=== PATIENT | female | born 1935 | race Caucasian/White ===

== ENCOUNTER → 2016-09-08 | Outpatient (CLI) | payer MEDICARE, BC ==
[~2016-09-08] MED LIST: ALAGESIC CAPSUL1 CAP PO; AMITRYPTYLINE PO; ASPIRIN81 M2 PO; BUTALB-CAFF-AC1 EACH PO; CELEXA PO; INDERAL60 MG PO; NAPROXEN PO; OMEPRAZOLE40 M1 PO; PHENERGAN25 M1 PO; PROMETHAZINE HC25 MG PO; PROTONIX PO; SENSIPAR30 MG PO; TESSALON PERLE100 M1 PO; TOPIRAMATE25 MG PO; TRAZODONE HCL100 MG PO; TYLENOL W-CODEI1 TAB PO; VITAMIN D50000 UNIT PO
--- NOTE | ~2016-09-08 | MR18 ---
[facility] A Service of [facility] RADIOLOGY TEXT RESULTS PATIENT: ELLIOT MISHRA LOCATION: [facility] : 36 UNIT #: [id number] AGE: [address]: Rhett Ko MD SEX: F ORDER DR: [id number] [facility] [address] [place], [place] [address] [id number] O MR#: [id number] Acc #: [id number] NAME: ELLIOT MISHRA : 1935 SEX: F STUDY DATE/TIME: 09/08/2016 14:03 UNIT: [facility] ROOM: STUDY DESCRIPTION: MR Brain Wo Contrast Attending Physician: Rhett Ko M.D. Ordering Physician: Rhett Ko M.D. Primary Care Physician: Rhett Ko M.D. MRI CENTER REPORT This report is preliminary unless electronic signature is present. INDICATION Migraine headache. Family history of aneurysm. Recent fall. TECHNIQUE Multiplanar MRI of the brain without contrast. COMPARISON Concurrent MRA of the head dated 09/08/2016 and MRI of the brain dated 06/30/2009. FINDINGS The midline structures and craniocervical junction are within normal limits. Confluent T2/FLAIR signal abnormalities within the periventricular and subcortical white matter are consistent with chronic small vessel changes. 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 This is unchanged from 2008. The ventricles and basilar cisterns are normal in size and configuration. No extraaxial collections. Vascular flow voids are grossly normal, however will be further assessed on the MRI of the brain. The visualized paranasal sinuses are clear. Orbits are unremarkable. No mastoid effusion. IMPRESSION 1. No acute intracranial findings. 2. Atrophy and chronic small vessel changes. The small vessel changes have progressed since the older 2008 comparison. Dictated by... Ashok Randolph M.D. THIS IS AN ELECTRONICALLY VERIFIED REPORT Ashok Randolph M.D. at 09/09/2016 10:58 AM [facility] A Service of [facility] RADIOLOGY TEXT RESULTS PATIENT: ELLIOT MISHRA LOCATION: [facility] : 36 UNIT #: [id number] AGE: [address]: Rhett Ko MD SEX: F ORDER DR: RADHA/david TD: 09/09/2016 10:38 JOB #: [id number] MRI CENTER REPORT COPY
--- NOTE | ~2016-09-08 | MR122 ---
[facility] A Service of [facility] RADIOLOGY TEXT RESULTS PATIENT: ELLIOT MISHRA LOCATION: [facility] : 36 UNIT #: [id number] AGE: [address]: Rhett Ko MD SEX: F ORDER DR: [id number] [facility] [address] [place], [place] [address] [id number] O MR#: [id number] Acc #: [id number] NAME: ELLIOT MISHRA : 1935 SEX: F STUDY DATE/TIME: 09/08/2016 14:32 UNIT: [facility] ROOM: STUDY DESCRIPTION: MR MRA Head Wo Contrast Attending Physician: Rhett Ko M.D. Ordering Physician: Rhett Ko M.D. Primary Care Physician: Rhett Ko M.D. MRI CENTER REPORT This report is preliminary unless electronic signature is present. EXAM MRA head INDICATIONS Family history of intracranial aneurysm. Observation for aneurysm. Migraine headache. TECHNIQUE 3-D [id number] MRA of the head without contrast. Volume rendered and surface rendered reconstructed images were acquired. COMPARISON MRA of the head dated 06/21/2011. FINDINGS The intracranial internal carotid arteries are widely patent. Both the middle cerebral arteries and the anterior cerebral arteries are normal. The anterior communicating artery is widely patent. No evidence of a significant vascular stenosis, thrombosis, or aneurysm. The vertebral basilar arteries are normal. Both posterior cerebral arteries are normal. The left posterior communicating artery is widely patent. The right posterior communicating artery is not clearly identified. No evidence of a significant stenosis, thrombosis, or aneurysm in the posterior circulation. The middle meningeal arteries are patent. IMPRESSION Negative MRA of the head. No evidence of a vascular aneurysm. Dictated by... Ashok Randolph M.D. [facility] A Service [facility] RADIOLOGY TEXT RESULTS PATIENT: ELLIOT MISHRA LOCATION: [facility] : 36 UNIT #: [id number] AGE: [address]: Rhett Ko MD SEX: F ORDER DR: THIS IS AN ELECTRONICALLY VERIFIED REPORT Ashok Randolph M.D. at 09/09/2016 10:58 AM RADHA/kamran TD: 09/09/2016 10:47 JOB #: [id number] MRI CENTER REPORT COPY
== END | disposition home or self-care (01) ==
LOC: CMRI 13:27
DX: G43.909 Migraine, unspecified, not intractable, without status migrainosus (principal); G31.89 Other specified degenerative diseases of nervous system; Z86.79 Personal history of other diseases of the circulatory system
CPT/HCPCS: 70544; 70551

== ENCOUNTER → 2017-01-07 | Outpatient (CLI) | payer MEDICARE, BC ==
--- NOTE | ~2017-01-07 | BD1 ---
[facility] A Service of [facility] RADIOLOGY TEXT RESULTS PATIENT: ELLIOT MISHRA LOCATION: [facility] : 36 UNIT #: [id number] AGE: [address]: Abdulaziz Mirza MD SEX: F ORDER DR: [id number] [facility] [address] [place], [place] [address] [id number] O MR#: [id number] Acc #: [id number] NAME: ELLIOT MISHRA : 1935 SEX: F STUDY DATE/TIME: 01/07/2017 11:26 UNIT: [facility] ROOM: STUDY DESCRIPTION: BD Dexa Bone Dens 1+ Site Attending Physician: Abdulaziz Mirza M.D. Referring Physician: Abdulaziz Mirza M.D. Ordering Physician: Abdulaziz Mirza M.D. Primary Care Physician: Rhett Ko M.D. MEDICAL IMAGING REPORT This report is preliminary unless electronic signature is present EXAM Bone densitometry, lumbar spine and left hip. FINDINGS The patient is an 81-year-old female, 4 feet, 11 inches, weight 114, with a diagnosis of osteoporosis, postmenopausal COMMENTS Bone densitometry performed lumbar spine and left hip on a Hologic system. COMPARISON STUDIES Study from 11/29/2014. FINDINGS Total bone mineral density lumbar spine L1-L4 is 0.874 g/cm2 which projects to a T-score of -1.6. This is a 3.5% positive change from baseline. Total bone mineral density left hip is 0.681 g/cm2 with a T-score of -2.1. Total bone mineral density left femoral neck, 0.567 g/cm2 with a T-score of -2.5. Change from baseline is 0.4% positive. This is not statistically significant. This patient does have an increased risk of fracture. If the femoral neck measurement is utilized, the patient's fracture risk is high and by WHO classification, the patient has osteoporosis given the -2.5 T score. Femoral neck measurement previously was 0.550 g/cm2 with a T-score of -2.7, on 11/29/2014. IMPRESSION Using the left femoral neck T-score, this patient has a high risk of fracture with WHO classification of osteoporosis. There is mild improvement from baseline study 11/29/2014. Measurements provided above. [facility] A Service of [facility] RADIOLOGY TEXT RESULTS PATIENT: ELLIOT MISHRA LOCATION: [facility] #: [id number] : 37 UNIT #: [id number] AGE: [address]: Abdulaziz Mirza MD SEX: F ORDER DR: Dictated by... Isaura Ramos M.D. THIS IS AN ELECTRONICALLY VERIFIED REPORT Isaura Ramos M.D. at 01/09/2017 7:28 AM Theron TD: 01/08/2017 22:47 JOB #: [id number] MEDICAL IMAGING REPORT Page 1 of 1 COPY
== END | disposition home or self-care (01) ==
LOC: CWCC 12-27 11:30
DX: M81.0 Age-related osteoporosis without current pathological fracture (principal)
CPT/HCPCS: 77080